=== PATIENT | female | born 1950 | race Caucasian/White ===

== ENCOUNTER 2022-12-25 19:33 | Inpatient (IN) | payer MEDICARE, SELFPAY ==
--- NOTE | 2022-12-13 10:59 | PC.NURSE ---
Report to the Outpatient Waiting Room, entrance under the green pavilion located off [address], at time __1030____ on date __12/24/22 . Planned Procedure Time: _1230 . Time changes happen often and if your time is changed the preop area will call you the afternoon before. - You and your visitor will be asked to self-screen and do not enter if you have any COVID symptoms. - Only one visitor is requested with a max of two and NO children visitors are allowed at this time. - The patient visitor may be requested to leave or wait in car when not with patient due to distancing restrictions. - A mask is optional within the hospital at this time. Patients may have clear liquids (water, carbonated beverages, clear teas, apple juice) until 3 hours prior to surgery with a maximum of 20 ounces. - No food from midnight until time of surgery - Infants may have breast milk until 4 hours before surgery, formula 6 hours prior to surgery. - Children will be allowed to drink immediately following surgery. If applicable, please bring a bottle or sippy cup to assist with drinking. Juice, water, soda, and popsicles are readily available. For infants on formula, please bring formula the day of surgery. Pacifiers are allowed. Take the following medications with a SIP of water the morning of surgery: ____LEVOTHYROXINE,GABAPENTIN,MORPHINE,HYDROCODONE DO NOT STOP ANY OF YOUR OTHER PRESCRIPTION MEDICATIONS PRIOR TO SURGERY ?EXCEPT THE FOLLOWING Medications to discontinue per physician ALL VITAMINS AND SUPPLEMENTS 3 DAYS PRE OP_. ASPIRIN AND MELOXICAM PER DR CAMPOS (PT TO CALL) Date to take last dose___12/20/22 Please no make-up, nail estonian, hairspray, perfume, deodorant, or body powder the day of surgery. No jewelry (including any body piercings) or valuables the day of surgery, leave them at home. Please take a shower or bath the night before, or the morning of, surgery with an antibacterial soap. Wear comfortable, loose fitting clothing. Children are encouraged to wear pajamas. - Jewelry must be removed prior to entering the operating room. Rings and piercings that are not removed may be cut off. - The hospital will not accept responsibility for valuables. - Please leave all valuables, including medications, at home the day of surgery. If you are going home after surgery, a licensed semi driver must drive you home. - NO public transportation without another adult if you receive anesthesia. - We recommend that an adult stay with you for 24 hours following discharge. - We also recommend that you do not drive, make important decision, drink alcoholic beverages, or take any drugs that were not prescribed by your health care provider for at least 24 hours after your discharge time. Follow any additional instructions given to you from your surgeon. If you or anyone in your household have experienced Covid symptoms in the past week, please notify your surgeon or the nurse liaison at the phone number below for possible testing. Telephone instructions given to __PATIENT and asked if any additional questions and then verbalized understanding. Patient advised to call surgeon office or pre surgery nurse liaison [phone] if any additional questions.
[2022-12-13 11:15] VITALS: BMI 22.8
[2022-12-24] VITALS (14 sets, daily range): BP systolic 120–163; BP diastolic 45–79; PULSE 57–75; RESP 11–18; TEMP 36.3–36.9; O2SAT 99–100
--- NOTE | 2022-12-24 11:11 | SUR.PREOP ---
pt informed delay in procedure
[2022-12-24] MEDS: LACTATED RINGERS 1,000 ML 30 ML IV CONT ×2 (13:00→16:24)
--- NOTE | 2022-12-24 13:00 | WPDANESEPPF ---
Anes - Initial Pre Proc Eval Procedure: Operation Date: 12/24/22 12:30 Proposed Procedures p L1-5 Lumbar Laminectomy - Sergio Case MD Date/Time: 12/24/22 13:00 Surgeon: Sergio Case MD Pre Op Diagnosis: L1-5 stenosis, neurogenis claudication Patient Data Age: 72 Gender: F Height: 1.63 m Weight: 60.8 kg Last Vital Signs Temp 36.9 C 12/24/22 10:31 Pulse 71 12/24/22 10:31 Resp 16 12/24/22 10:31 BP 163/79 H 12/24/22 10:31 Pulse Ox 100 12/24/22 10:31 O2 Del Method Room Air 12/24/22 10:31 Allergies Allergy/AdvReac Type Severity Reaction Status Date / Time azithromycin [From Zithromax] Allergy Intermediate Hives Verified 12/24/22 10:41 Home Medications Medication Instructions Recorded Confirmed Type acetaminophen 500 mg tablet 500 mg PO Q6H PRN Pain 06/10/22 12/24/22 History (Tylenol Extra Strength) amlodipine 10 mg tablet 10 mg PO DAILY 06/10/22 12/24/22 History aspirin 81 mg tablet,delayed 81 mg PO DAILY 06/10/22 12/24/22 History release gabapentin 600 mg tablet 600 mg PO DAILY 06/10/22 12/24/22 History hydrocodone 10 mg-acetaminophen 1 tablet PO QHS PRN Pain 06/10/22 12/24/22 History 325 mg tablet levothyroxine 137 mcg capsule 137 mcg PO DAILY 06/10/22 12/24/22 History lisinopril 20 1 tablet PO DAILY 06/10/22 12/24/22 History mg-hydrochlorothiazide 12.5 mg tablet morphine 30 mg capsule,extended 30 mg PO DAILY 06/10/22 12/24/22 History release 24 hr multiphase multivitamin (Daily Multi-Vitamin 1 tablet PO DAILY 06/10/22 12/24/22 History tablet) nebivolol 10 mg tablet (Bystolic) 10 mg PO DAILY 06/10/22 12/24/22 History cyclobenzaprine 10 mg tablet 10 mg PO BID 07/15/22 12/24/22 History meloxicam 7.5 mg tablet 7.5 mg PO DAILY 07/15/22 12/24/22 History rosuvastatin 10 mg tablet 10 mg PO DAILY 07/15/22 12/24/22 History calcium carb 333 mg-vit D3 133 1 tablet PO DAILY 12/13/22 12/24/22 History unit-mag ox 133 mg-zinc oxide 5 mg tab (Sim Mag Zinc Plus D3) cholecalciferol (vitamin D3) 50 50 mcg PO DAILY 12/13/22 12/24/22 History mcg (2,000 unit) tablet omega-3 fatty acids 1,000 mg PO DAILY 12/13/22 12/24/22 History Laboratory Tests 12/24/22 10:35 Blood Type O Positive Antibody Screen Negative Patient hx anesthesia problems: none Family hx anesthesia problems: none Results Review: All pre-operative results and documents have been reviewed as part of the pre-operative evaluation. [facility] Past Medical History Medical History Arthritis Fibromyalgia Hypertension Myocardial infarct Surgical History Surgical History H/O: hysterectomy Hx of appendectomy Family History Family History Other Depression Diabetes mellitus Heart disease Hypertension Social History Social History Smoking status: Never smoker Alcohol intake: current Substance use: never Substance use type: does not use Living arrangements: alone Spiritual care concerns: No Anes - Eval Final PreProcedure Day of Procedure 12/24/22 13:00 Patient weight: normal Heart: regular rate and rhythm Lungs: clear to auscultation Airway: Mallampati scale class II Neurological: alert and oriented Last oral intake: >/= 8 hours ASA classification: III Emergent: no Anesthetic plan: proceed Anesthesia type and monitoring: general ETT and standard monitoring Results Review: All pre-operative results and documents have been reviewed as part of the pre-operative evaluation. Informed Consent: The patient's anesthetic plan and its attendant risks and benefits were discussed with the patient/family/POA. Questions were solicited and answers provided to the satisfaction of the patient/family/POA.
--- NOTE | 2022-12-24 13:13 | PM.IMHP ---
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 She has not changed appreciably since we last saw her. She does not have specific muscle group weakness or more dermatomal numbness. She is not having any bowel or bladder difficulty. Review of Systems Review of Systems: All systems reviewed & are unremarkable except as noted in HPI and below PMFSH Past Medical History Medical History Arthritis Fibromyalgia Hypertension Myocardial infarct Surgical History Surgical History H/O: hysterectomy Hx of appendectomy Family History Family History Other Depression Diabetes mellitus Heart disease Hypertension Social History Social History Smoking status: Never smoker Alcohol intake: current Substance use: never Substance use type: does not use Living arrangements: alone Spiritual care concerns: No Meds Home Medications and Allergies Home Medications Medication Instructions Recorded Confirmed Type acetaminophen 500 mg tablet 500 mg PO Q6H PRN Pain 06/10/22 12/24/22 History (Tylenol Extra Strength) amlodipine 10 mg tablet 10 mg PO DAILY 06/10/22 12/24/22 History aspirin 81 mg tablet,delayed 81 mg PO DAILY 06/10/22 12/24/22 History release gabapentin 600 mg tablet 600 mg PO DAILY 06/10/22 12/24/22 History hydrocodone 10 mg-acetaminophen 1 tablet PO QHS PRN Pain 06/10/22 12/24/22 History 325 mg tablet levothyroxine 137 mcg capsule 137 mcg PO DAILY 06/10/22 12/24/22 History lisinopril 20 1 tablet PO DAILY 06/10/22 12/24/22 History mg-hydrochlorothiazide 12.5 mg tablet morphine 30 mg capsule,extended 30 mg PO DAILY 06/10/22 12/24/22 History release 24 hr multiphase multivitamin (Daily Multi-Vitamin 1 tablet PO DAILY 06/10/22 12/24/22 History tablet) nebivolol 10 mg tablet (Bystolic) 10 mg PO DAILY 06/10/22 12/24/22 History cyclobenzaprine 10 mg tablet 10 mg PO BID 07/15/22 12/24/22 History meloxicam 7.5 mg tablet 7.5 mg PO DAILY 07/15/22 12/24/22 History rosuvastatin 10 mg tablet 10 mg PO DAILY 07/15/22 12/24/22 History calcium carb 333 mg-vit D3 133 1 tablet PO DAILY 12/13/22 12/24/22 History unit-mag ox 133 mg-zinc oxide 5 mg tab (Sim Mag Zinc Plus D3) cholecalciferol (vitamin D3) 50 50 mcg PO DAILY 12/13/22 12/24/22 History mcg (2,000 unit) tablet omega-3 fatty acids 1,000 mg PO DAILY 12/13/22 12/24/22 History Allergies Allergy/AdvReac Type Severity Reaction Status Date / Time azithromycin [From Zithromax] Allergy Intermediate Hives Verified 12/24/22 10:41 Vital Signs Vital Signs - 24 hr 12/24/22 10:31 Temperature 98.5 F Pulse Rate 71 Respiratory Rate 16 Blood Pressure 163/79 H Pulse Oximetry 100 Oxygen Delivery Room Air Exam Narrative: Strength is 5/5 in all muscle groups of the bilateral lower extremities. Sensation is intact to light touch throughout the lower extremities. Breathing is unlabored, she speaks in complete sentences without difficulty. Regular rate and rhythm Assessment and Plan Assessment and plan (1) Lumbar spondylosis: Code(s): M47.816 - Spondylosis without myelopathy or radiculopathy, lumbar region Status: Acute (2) Spondylolisthesis at L4-L5 level: Code(s): M43.16 - Spondylolisthesis, lumbar region Status: Acute (3) Lumbar stenosis with neurogenic claudication: Code(s): M48.062 - Spinal stenosis, lumbar region with neurogenic claudication Status: Acute Plan Brenna is a 72-year-old female with neurogenic claudication secondary to spin
--- NOTE | 2022-12-24 13:14 | WPDHPUPDATE1 ---
History and Physical Update Update Date/Time: 12/24/22 13:14 History and Physical has been reviewed, including an updated exam of the patient. There are NO changes in the patient's condition. Risks, benefits, and alternatives have been discussed and questions answered. Patient agrees to proceed with procedure.
[2022-12-24] MEDS: ceFAZolin 2 GM/D5W 50 ML 2 GM/50 ML BAG IVPB (13:30)
[2022-12-24] MEDS: LIDO 1%/EPINEPHRINE 1:100,000 20 ML VIAL INFILTRATE (14:12)
--- NOTE | 2022-12-24 16:33 | W.PM.PROC2 ---
Procedure Note - Detailed Date of Procedure 12/24/22 Pre-op Diagnosis L1-5 stenosis, neurogenic claudication Post-op Diagnosis Same Procedure Performed L1-2 5 laminectomy Surgeon Sergio Case MD Wind Development Director Maral barrera Anesthesia General Description of Procedure The patient was brought to the operating room in the supine position, was sedated, intubated and placed under general anesthesia in routine fashion. She was then turned into the prone position on a Niels frame. The area of operation on her back was examined, marked for incision, prepped and draped in routine sterile fashion. Incision was marked over the L1 through 5 spinous processes in the midline. This area was injected with 0.5% lidocaine with [id number] epinephrine. Intravenous antibiotics were given prior to incision. Incision was made with a 10 blade scalpel down to the lumbodorsal fascia. A subperiosteal dissection of muscle soft tissue away from spinous process and lamina at L1-5 was performed with a subperiosteal elevator and Bovie cautery. A verifying x-rays obtained to verify the level of operation. The L1 through 4 spinous processes were removed with the Conner rongeur. The bottom of the L5 spinous process was also removed with the Conner rongeur. A Midas Erwin drill with a acorn bit was used to thin the lamina in the midline into the soft contents of the canal were encountered. Curved curette and Kerrison punches were used to remove bone in the midline. The ligament was then lifted removed piecemeal using Kerrison punches exposing the dura below. First on the right and then on the left plane was dissected in the lateral epidural space using a curved curette and Kerrison punches were used to remove overgrown bone and ligament. This was done until each pedicle could be felt and decompression in the lateral recess was confirmed by passing a [place] instrument through the lateral recess. The wound was then copiously irrigated with bacitracin irrigation all bleeding was stopped with bipolar and Bovie cautery and Gelfoam thrombin powder. The wound was then closed in layered fashion with 2-0 Vicryl interrupted sutures in the lumbodorsal fascia and Meli's layer. 3-0 Vicryl buried interrupted sutures were placed in the dermis and the skin was closed with a running 4-0 Monocryl subcuticular stitch and dressed with Dermabond and a Telfa and Tegaderm dressing. A medium Hemovac drain had been left in a subfascial position buried out to the inferior right incision prior to closure and was now attached to bulb suction. The patient was loud wake up in the operating room and was taken to the recovery room in stable condition. There were no immediate complications of this operation. All counts were reported correct in the case. Blood loss was 450 cc. The patient was neurologically at her baseline postoperatively. CPT codes: 56988, 84025 X4 Estimated Blood Loss -450.0 IV Fluids 2,500 Urine Output -500.0 Drains Yes Complications None Condition Stable Disposition PACU [facility] Billing Surgery - Charge Forward: Surgery Billing
[2022-12-24] MEDS: HYDROmorphone HCL INJ (*CRX) 1 MG/ML SYR 0.5 MG IV PUSH ×5 (16:45→17:45)
[2022-12-24] MEDS: KCL 20 MEQ/D5/0.45% SOD CHL 1,000 ML 100 ML IV CONT (18:28)
[2022-12-24] MEDS: HYDROcodone/acetaminophen (*CRX) 10-325 MG TABLET 1 TAB PO (18:42)
[2022-12-24] MEDS: NEBIVOLOL HCL 5 MG TABLET 10 MG PO (21:26)
[2022-12-24] MEDS: ROSUVASTATIN 10 MG TABLET PO (21:26)
[2022-12-24] MEDS: amLODIPine BESYLATE 5 MG TABLET 10 MG PO (21:27)
[2022-12-24] MEDS: DOCUSATE SODIUM 100 MG CAPSULE PO (21:27)
[2022-12-24] MEDS: LEVOTHYROXINE SODIUM 112 MCG TABLET PO (21:27)
[2022-12-24] MEDS: CYCLOBENZAPRINE HCL 10 MG TABLET PO (21:41)
[2022-12-24] MEDS: LEVOTHYROXINE SODIUM 25 MCG TABLET PO (21:41)
[2022-12-24] MEDS: MORPHINE SULFATE (*CRX) 4 MG/ML INJ IV PUSH (22:59)
[2022-12-24] MEDS: HYDROcodone/acetaminophen (*CRX) 10-325 MG TABLET 2 TAB PO (23:02)
--- NOTE | ~2022-12-25 | XR_ITS ---
EXAMINATION: XR fluoroscopy no charge DATE: 12/24/2022 16:31 INDICATION: L1-L5 laminectomy TECHNIQUE: Single lateral fluoroscopic image of the lower lumbar spine was obtained during procedure performed by Dr. Case. Radiologist was not present for the imaging or procedure. The amount of fl uoroscopy time used during this procedure was 0.1 minutes. COMPARISON: 07/05/2022 FINDINGS: Tissue retractors, lap sponge in a metallic probe projects over a lucent operative bed posterior to L 4 and L5. Moderate disc height loss at L3-L4 and L4-L5 with grade 1 anterolisthesis L4 on L5. IMPRESSION: 1. Fluoroscopy utilized during a surgical procedure at the lower lumbar spine. See procedure note for further detail. Reviewed, dictated and finalized at location A. SETTER
[2022-12-25 01:01] VITALS: BP 118/59; PULSE 62; RESP 16; TEMP 36.7; O2SAT 99
[2022-12-25] MEDS: CYCLOBENZAPRINE HCL 10 MG TABLET PO ×2 (01:51→18:56)
[2022-12-25] MEDS: MORPHINE SULFATE (*CRX) 4 MG/ML INJ IV PUSH (01:57)
[2022-12-25 05:01] VITALS: BP 122/56; PULSE 62; RESP 18; TEMP 36.6; O2SAT 99
[2022-12-25] MEDS: HYDROcodone/acetaminophen (*CRX) 10-325 MG TABLET 2 TAB PO (05:25)
--- NOTE | 2022-12-25 08:08 | WPDANESPN ---
Anes - Prog Note Post-Op Date/Time: 12/25/22 08:08 Vital Signs: Last Vital Signs Temp 36.6 C 12/25/22 05:01 Pulse 62 12/25/22 05:01 Resp 18 12/25/22 05:01 BP 122/56 L 12/25/22 05:01 Pulse Ox 99 12/25/22 05:01 O2 Del Method Room Air 12/24/22 20:00 O2 Flow Rate 8 12/24/22 16:54 Pain Score (VAS): 0 I/O: Intake & Output 12/24/22 12/25/22 12/25/22 23:59 07:59 15:59 Intake Total 2950 Output Total 10 1600 Balance 2940 -1600 12/24/22 10:35 Blood Type O Positive Antibody Screen Negative Patient Feedback: Patient satisfied with anesthetic care.
[2022-12-25] MEDS: OMEGA 3 POLYUNSAT FATTY ACIDS 1 GM CAP PO (08:28)
[2022-12-25] MEDS: lisinopriL 20 MG TABLET PO (08:28)
[2022-12-25] MEDS: DOCUSATE SODIUM 100 MG CAPSULE PO ×2 (08:28→20:26)
[2022-12-25] MEDS: MULTIVITAMINS THERAPEUTIC TAB (*BKC) 1 TABLET PO (08:29)
[2022-12-25] MEDS: hydroCHLOROthiazide 12.5 MG CAPSULE PO (08:29)
[2022-12-25] MEDS: CHOLECALCIFEROL 1,000 UNITS TABLET 2000 UNITS PO (08:29)
[2022-12-25] MEDS: GABAPENTIN 300 MG CAPSULE 600 MG PO ×3 (08:29→17:58)
[2022-12-25 09:01] VITALS: BP 105/83; PULSE 69; RESP 18; TEMP 36.7; O2SAT 99
[2022-12-25] MEDS: HYDROmorphone HCL INJ (*CRX) 1 MG/ML SYR IV PUSH (10:42)
[2022-12-25 13:01] VITALS: BP 110/59; PULSE 57; RESP 18; TEMP 36.8; O2SAT 99
[2022-12-25] MEDS: KCL 20 MEQ/D5/0.45% SOD CHL 1,000 ML 100 ML IV CONT (17:58)
--- NOTE | 2022-12-25 18:36 | PHAR ---
Addendum entered by Jes [facility] 12/25/22 18:38: FORM: ORAL TABLET, EXTENDED RELEASE Original Note: RX [id number] MEDICINE SHOP CONTAINS DRUG NAME: MORPHINE SULFATE INGREDIENTS: MORPHINE SULFATE -- 30 MG RELATED DOCUMENTS: DRUGDEX EVALUATIONS - MORPHINE COLOR: PURPLE SHAPE: HOH IMPRINT: RD 71 DIRECTIONS Q12HR
[2022-12-25] MEDS: LEVOTHYROXINE SODIUM 112 MCG TABLET PO (20:26)
[2022-12-25] MEDS: LEVOTHYROXINE SODIUM 25 MCG TABLET PO (20:26)
[2022-12-25] MEDS: amLODIPine BESYLATE 5 MG TABLET 10 MG PO (20:26)
[2022-12-25 20:27] VITALS: PULSE 73
[2022-12-25] MEDS: NEBIVOLOL HCL 5 MG TABLET 10 MG PO (20:27)
[2022-12-25] MEDS: ROSUVASTATIN 10 MG TABLET PO (20:27)
[2022-12-25 20:52] VITALS: BP 119/43; PULSE 73; RESP 20; TEMP 36.6; O2SAT 98
[2022-12-26] MEDS: HYDROcodone/acetaminophen (*CRX) 10-325 MG TABLET 2 TAB PO (02:58)
[2022-12-26 05:48] VITALS: BP 110/47; PULSE 65; RESP 16; TEMP 36.7; O2SAT 99
[2022-12-26] MEDS: hydroCHLOROthiazide 12.5 MG CAPSULE PO (08:32)
[2022-12-26] MEDS: OMEGA 3 POLYUNSAT FATTY ACIDS 1 GM CAP PO (08:32)
[2022-12-26] MEDS: CHOLECALCIFEROL 1,000 UNITS TABLET 2000 UNITS PO (08:32)
[2022-12-26] MEDS: GABAPENTIN 300 MG CAPSULE 600 MG PO ×3 (08:32→17:06)
[2022-12-26] MEDS: MULTIVITAMINS THERAPEUTIC TAB (*BKC) 1 TABLET PO (08:32)
[2022-12-26] MEDS: lisinopriL 20 MG TABLET PO (08:32)
[2022-12-26] MEDS: DOCUSATE SODIUM 100 MG CAPSULE PO (08:32)
--- NOTE | 2022-12-26 09:37 | PC.NURSE ---
Pt complaining that no one helps her. Pt also admitting that she does not use the call light because she does not want to bother us. I let her know that we cannot help her if she does not let us know that she needs something. Reminded her to please use the call light so we can assist her with any needs she may have.
--- NOTE | 2022-12-26 10:12 | PCOTNOTE ---
Attempted to see patient this am, however patient refused due to pain. Pt reported taking pain medicine and hour ago, however stated, If I would get the muscle relaxer at the same time it would work so much better. I don't want to do it right now.
--- NOTE | 2022-12-26 10:40 | PC.NURSE ---
Pt refusing to work with therapy this morning. Pt educated on the importance of working with them when they are available. Pt claiming she does not feel like it right now.
[2022-12-26 14:48] VITALS: BP 138/81; PULSE 90; RESP 18; TEMP 36.2; O2SAT 100
[2022-12-26] MEDS: CYCLOBENZAPRINE HCL 10 MG TABLET PO (17:06)
--- NOTE | 2023-01-12 21:54 | PM.DS ---
DS: Admitting Diagnosis Discharge Date 12/26/22 Admitting Diagnosis L1-5 stenosis with claudication DS: Discharge Diagnosis Discharge Diagnosis (1) Lumbar spondylosis: Code(s): M47.816 - Spondylosis without myelopathy or radiculopathy, lumbar region Status: Acute (2) Lumbar stenosis with neurogenic claudication: Code(s): M48.062 - Spinal stenosis, lumbar region with neurogenic claudication Status: Acute DS: Summary Hospital Course Hospital Course: Brenna was taken to the operating room on 12/24 22 with the aforementioned operation, that is, and L1-5 laminectomy was performed without complication. The patient went to the floor postoperatively. her drain was removed on postoperative day 1. Physical and occupational therapy were involved in her care. By postoperative day 2 she was eating, ambulating, emptying her bladder and her pain was under control with by mouth pain medicine. Her wounds remain clean, dry and intact. She was afebrile with stable vital signs. She was therefore lot to be discharged home. Status at Discharge Functional status at discharge: independent ambulation Time Spent with Patient Time attestation: Total time spent providing and/or coordinating discharge services: Discharge Plan Discharge Attending physician on discharge: Sergio Case Consulting providers: Moo Lizama Discharging Clinician: Sergio Case Anticipated Discharge Date/Time: 12/26/22 22:02 Patient Disposition: SNF Activity: may shower Diet: as tolerated Wound Care Instructions: follow printed instructions Discharge Instructions: INSTRUCTIONS AFTER YOUR LUMBAR LAMINECTOMY/DECOMPRESSION/FORAMINOTOMY/DISCECTOMY Incisions may be closed with either: Steri-strips (let them wear off on their own). Surgical glue (let it peel off on its own). Sutures or dixon (call the office for an appointment to have these removed). Keep the incision dry for the first three days after surgery. Never apply ointments or lotions to the incision. The incision should be checked daily. Notify the office if there is drainage, redness, or if you have fever with a temperature of over 100 degrees. After the third postop day, it is okay to shower. Let soap and water run over your incision. No soaking in a tub, hot tub, or pool for at least one month. You are encouraged to walk as much as comfortable, with assistance as needed. For example, it may be beneficial to walk short distances hourly during the waking hours and gradually increase walking during your recovery period. Fatigue can be common. Avoid any bending, heavy lifting, twisting movements. You have an ymtuo-xs-ali-pound lift restriction until further advised by your physician (A gallon of milk weighs eight pounds). Make frequent position changes, avoiding long periods of sitting. Try not to sit more than 30 minutes at a time. You may engage in sexual activity in two weeks as tolerated. No housework, especially vacuuming, making beds, or doing laundry until seen in the office. You may walk stairs carefully. Minimize car rides for two weeks. Driving can usually be resumed within two weeks; however, you may not drive at that time if still taking pain medications. Once you are discharged from the hospital, please call the office to set up your postop appointment. The physician may order pain medication and/or muscle relaxers. As time goes by, you should require less of these. Always take your medication as ordered, and only if needed. If you take more than prescribed, it will not be refilled early. If you feel you require narcotic medication refill, kindly give the office a 72-hour notice. No refills are given over the weekend. Anti-inflammatory meds (like Ibuprofen, Aleve, Advil, Motrin) may be used if approved by your surgeon. Over the counter Tylenol products may be used but use caution mixing Tylenol with your pain medication. The common pain pills
== END 2022-12-26 18:35 | DRG 520 ==
LOC: ANHSURGERY 19:41 → ANH3MED 12-26 11:06
PROVIDERS: Admitting Provider Neurological Surgery; PCP Family Medicine; Visit Provider Neurological Surgery
PROC: 00NY0ZZ Release Lumbar Spinal Cord, Open Approach (ICD-10-PCS; CPT 63005; principal; 2022-12-24 12:30)
DX: M48.062 Spinal stenosis, lumbar region with neurogenic claudication (principal); M43.16 Spondylolisthesis, lumbar region; M47.816 Spondylosis without myelopathy or radiculopathy, lumbar region; M19.90 Unspecified osteoarthritis, unspecified site; M79.7 Fibromyalgia; I25.2 Old myocardial infarction; Z90.710 Acquired absence of both cervix and uterus; Z90.49 Acquired absence of other specified parts of digestive tract; Z79.82 Long term (current) use of aspirin
CPT/HCPCS: 36415; 86850; 86900; 86901; 97161; 97165; 97530; 97535; 99199; A9270; J0690; J1100; J1170; J2250; J2270; J2405; J2704; J2710; J3010; J3480; J7120